=== PATIENT | male | born 1960 | race Caucasian/White ===

== ENCOUNTER 2017-03-21 20:19 | Emergency (ER) | payer OTHER ==
[~2017-03-21] VITALS: Ht 195.6 cm; Wt 140.9 kg
[~2017-03-21 20:19] MED LIST: ASA325 PO; [UNRECOGNIZED DRUG - OTHER] TP
[2017-03-21 20:32] VITALS: BP 148/90; PULSE 65; RESP 16; O2SAT 98
--- NOTE | 2017-03-21 20:41 | ED.REPORT ---
HPI-Chest Pain 40 and Over Date of Service Mar 21, 2017 ED Provider: Dr. Dharmesh Buitrago M.D. The patient is a 57 year old male with a history of a herniated disc and osteoarthritis who presents to the ED with intermittent chest pain onset two days ago, most recent onset at 1900. The pain is described as "tightness" and "pressure," without radiation. Associated symptoms include shortness of breath and one week of left arm paresthesias. The patient denies other symptoms. He had similar symptoms one year ago, which resolved on their own. Nursing Notes Stated Complaint: TIGHT CHEST,SOB Chief Complaint: Chest Pain Nursing Notes Reviewed: Yes Allergies: Coded Allergies: No Known Allergies (Unverified Allergy, Unknown, 03/21/17) Scheduled ([Voltox]) 2 GM TP PRN Aspirin-Expunged Drug, Do Not Renew! (Aspirin-Expunged Drug, Do Not Renew!) 325 Mg Tablet 325 MG PO DAILY General Time Seen by MD: 20:40 Chief Complaint Chest pain Hx Obtained From: Patient Arrived By: Walk-in Sudden in Onset?: Yes Onset Occurred: 2 days ago Symptom Duration: Intermittent Location: : Chest left: Chest right Quality: Painful (Tightness), Pressure Radiation: : Does not radiate Severity: Current: Moderate Severity: Maximum: Moderate Pertinent Negative: Relieved by nothing Recent Healthcare: No recent doctor visit Similar Sx Previous: Yes Risk Factors HEART Score HEART for MACE: Low index of susp (0), Normal ECG (0), Age 45 - 65 (1), 1-2 CAD risk factors (1), < or = to NL troponin (0) HEART for MACE Score: 0-3 (low risk 0.9%-1.7%) Past Medical History Past Medical History Herniated disc Osteoarthritis Past Surgical History Right quadriceps tendon repair Family History No hx of [place] Smoking History Never Smoker Social History Other Social History: Good social support, Ambulatory Status Independent Review of Systems Review of Systems Note: + Left arm paresthesias Constitutional: Denies: Fever Respiratory: Reports: Shortness of breath, Denies: Non-productive cough Cardiovascular: Reports: Chest pain (Intermittent) GI: Denies: Diarrhea, Vomiting Complete sys rev & neg: except as marked. Physical Exam Initial Vital Signs Vital Signs (First) Date Time Temp Pulse Resp B/P Pulse Ox O2 Delivery O2 Flow Rate FiO2 03/21/17 20:32 36 65 16 148/90 98 Room Air Initial VS: Reviewed Head / Eyes: Atraumatic, Normocephalic ENT: Conjunctiva normal, No scleral icterus Neck: Supple, Full range of motion Skin: Warm, Dry, No cyanosis Neurologic: Alert, Oriented, Nonfocal Psychiatric: Mood/affect normal, Behavior normal, Normal thought content General/Constitutional: Awake, Alert, No acute distress Respiratory / Chest: Breath sounds NL, Breath sounds = bilat, No respiratory distress, No chest tenderness Cardiovascular: Heart rate NL, Regular rhythm, Heart sounds NL Abdomen: Soft, Non-tender Interpretation & Diagnostics Lab Results Interpretation Result Diagram: 03/21/17204903/21/172049 Test 03/21/17 20:50 White Blood Count 7.5th/mm3 (3.8-10.1) Red Blood Count 4.47mil/mm3 (4.40-5.80) Hemoglobin 14.1g/dL (13.8-17.2) Hematocrit 41.4% (41.0-50.0) Mean Corpuscular Volume 92.6fL (81-100) Mean Corpuscular Hemoglobin 31.5pg (27.0-35.0) Mean Corpuscular Hemoglobin Concent 34.1% (32.0-37.0) Red Cell Distribution Width 12.5% (12.3-15.4) Platelet Count 166bil/L (150-400) Neutrophils (%) (Auto) 52.2% (40-74) Lymphocytes (%) (Auto) 32.6% (14-46) Monocytes (%) (Auto) 9.8% (4-12) Eosinophils (%) (Auto) 4.7% (0-5) Basophils (%) (Auto) 0.4% (0-3) Sodium Level 137mEq/L (134-144) Potassium Level 4.1mEq/L (3.5-5.2) Chloride Level 101mEq/L (97-108) Carbon Dioxide Level 24mmol/L (18-29) Blood Urea Nitrogen 26mg/dL (6-24) Creatinine 1.09mg/dL (0.76-1.27) Estimat Glomerular Filtration Rate 75mL/min (>59) Glucose Level 109mg/dL (60-99) Calcium Level 9.6mg/dL (8.5-10.1) Magnesium Level 2.2mg/dL (1.6-2.6) Total Bilirubin 0.3mg/dL (0.0-1.2) Aspartate Amino Transf (AST/SGOT) 39U/L (0-50) Alanine Aminotransferase (ALT/SGPT) 42U/L (0-44) Alkaline Phosphatase 93U/L (25-150) Troponin T 0.010ug/L (0.0-0.011) Total Protein 6.8g/dL (6.4-8.4) Albumin 4.1g/dL (3.4-5.0) Hold Rain Top Tube Received (Received) ECG Interpretation ECG Interpretation: Sinus rhythm rate 65 Time: 20:41 Interpreted by: ED physician X-Ray Chest Interpretation Chest Xray Interpretation: IMPRESSION: No acute cardiopulmonary disease. Dictated by: Jamee Hernandez M.D. on 03/21/2017 at 21:09 View: Portable, 1 view Interpretation / Wet Read by: Interpret - Radiologist Re-Eval/Medical Decision Source of Hx: Old records Time of Eval: 21:58 Patient Status: Condition improved Re-Evaluation/Progress Note: Discussed with patient x-ray and lab results, diagnosis, and plan for discharge. Follow-up and return to the ER instructions given. Patient agrees with plan for care and all questions were addressed. Counseled Regarding: Diagnosis, Lab results, Need for follow-up, When/why to return to ED Discharge & Departure Primary Impression: Chest pain Chest pain type: unspecified Qualified Code: R07.9 - Chest pain, unspecified Disposition: Home Discharge Condition All VS Reviewed: Yes Condition: Improved Patient Instructions: Chest Pain (ED) Additional Instructions: No dangerous cause for your chest pressure is discovered today. No evidence of heart attack at this time. I recommend follow-up with your doctor to discuss further investigation of these symptoms in the coming days. Referrals: Isael Ron PA-C (PCP) Scribe Attestation Portions of this note were transcribed by Chrystal Liu. I, Dr. Buitrago, personally performed the history, physical exam, and medical decision-making; I reviewed and confirmed the accuracy of the information in the transcribed note. Signed by: Nasreen Silva, 03/21/2017, 22:50 copies to: Isael Ron PA-C, Kirk H MD Mar 21, 2017 20:41 CHRYSTAL LIU Mar 21, 2017 20:51
[2017-03-21 21:01] VITALS: BP 167/103; PULSE 67; RESP 20; O2SAT 99
[2017-03-21 21:02] LABS: BASOPHILS % (AUTO) 0.4 % (0-3); EOSINOPHILS % (AUTO) 4.7 % (0-5); MONOCYTES % (AUTO) 9.8 % (4-12); Mean Corpuscular Hemoglobin 31.5 pg (27.0-35.0); Mean Corpuscular Volume 92.6 fL (81-100); NEUTROPHILS % (AUTO) 52.2 % (40-74); Platelet Count 166 bil/L (150-400)
--- NOTE | 2017-03-21 21:11 | DRSVH ---
PROCEDURE: X-RAY CHEST ONE VIEW, PORTABLE ([id number]) INDICATIONS: CHEST PAIN,SOB TECHNIQUE: One view of the chest was acquired. COMPARISON: None. FINDINGS: Surgical changes and devices: None. Lungs and pleura: No pleural effusions or pneumothorax. Lungs are clear. Mediastinum: Mediastinal contours appear normal. Heart size is normal. Bones and chest wall: No suspicious bony lesions. Overlying soft tissues appear unremarkable. IMPRESSION: No acute cardiopulmonary disease. Dictated by: Jamee Hernandez M.D. on 03/21/2017 at 21:09 Approved by: Jamee Hernandez M.D. on 03/21/2017 at 21:10
[2017-03-21 21:25] LABS: TROPONIN T 0.01 ug/L (0.0-0.011)
[2017-03-21 21:36] LABS: Magnesium 2.2 mg/dL (1.6-2.6)
[2017-03-21 22:16] VITALS: BP 149/99; PULSE 63; RESP 20; O2SAT 96
== END 2017-03-21 22:17 ==
LOC: SED 20:19
DX: R07.89 Other chest pain (principal); R06.02 Shortness of breath; R20.2 Paresthesia of skin